=== PATIENT | male | born 1965 | race Caucasian/White ===

== ENCOUNTER 2019-09-04 14:10 | Observation (INO) ==
--- NOTE | 2019-09-04 15:23 | DR.PROGNOT ---
Hospital Progress Notes - Progress Note for Day of: Progress Note Date: 09/04/19 - Chief Complaint Chief Complaint: having watery bloody bowel movements. upper abdominal pain . anorexia and Wt loss . known gastro duodenal ulcers .s/p GI endoscopy . - Past Medical Family Social History Past Med/Fam/Surg Hx: No changes since H&P - Review Of Systems ROS: No change since H&P - Vital Signs Vital Signs: Blood Pressure 120/80 - Physical Exam Oriented: Normal Eyes: Other (pale conjunctiva.) Ear: Normal Nose: Normal Throat: Normal Respiratory: Normal Cardiovascular: Normal : Normal GI:Auscultation: Normal GI:Palpation: Normal GI: Tenderness: Diffuse (epigastric and Rt side tenderness . BS+) Skin: Normal Musculoskeletal: Normal Mood Description: Depressed - Assessment and Plan 1: rectal bleeding . abdominal pain with anorexia and Wt loss . gastro duedenal ulcers and gastritis . h/o Hepatitis B. cholelathiasis. on IV Protonix . Carafate PO , IVF and repeat CT and Lab work
--- NOTE | 2019-09-04 16:04 | DR.H&P ---
H&P History & Physical for Day of: H&P Date: 09/04/19 Chief Complaint Chief Complaint: Rectal bleeding Allergies Allergies Allergy/AdvReac Type Severity Reaction Status Date / Time No Known Drug Allergies Allergy Verified 09/04/19 16:16 History of Present Illness History of Present Illness: Pt is a 53 y/o m pmhx Cirrhosis, Chronic Hep B, PUD, HTN, Seizure d/o, Chronic cholecystitis, admitted from clinic after having episode of rectal bleeding and being acutely hypotensive with a BP 88/57, P 112, R18, pulseOx 99%. He reports associated sx of dizziness, fatigue, generalized weakness, chills, and abdominal pain. Initial labs:Hgb 6.7,Wbc 4, CEA pending, Cr 1.31, T bili 1.5, AST 178, ALT 124, ALP 132. Past Medical History Past Medical History: Cirrhosis, Hypertension, Kidney Stones, PUD and Seizures Past Surgical History Surgical History: Unknown Labs Result Diagrams: 09/05/19 05:28 09/05/19 05:28 Review of Systems Constitutional: Chills and Weakness; denies Fever Eyes: No Symptoms Reported ENT: No Symptoms Reported Respiratory: No Symptoms Reported Cardiovascular: No Symptoms Reported Physical Exam Vital Signs: Blood Pressure 120/80 Oriented: Normal Eyes: Normal Ear: Normal Nose: Normal Throat: Normal Respiratory: Clear Throughout Cardiovascular: Tachycardia : Normal Auscultation: Bowel Sounds: Normal Palpation: Normal Tenderness: Diffuse Skin: Decreased [place] Musculoskeletal: Normal Psychiatric: Normal Mood Description: Calm Speech Pattern: Clear Assessment/Plan (1) Rectal bleeding: Status: Acute Plan: Surgery-consulted for evaluation. Will get CT abdomen, Continue to monitor (2) Acute hypotension: Status: Acute Plan: IVF (3) PUD (peptic ulcer disease): Status: Acute Plan: IV protonix, Carafate, Continue to monitor. Review H&P Reviewed: Yes Patient was examined?: Yes
[2019-09-04 16:39] VITALS: BMI 32.6
[2019-09-04] MEDS ORDERED: VSL#3 PO ONE (16:42)
[2019-09-04] MEDS: CARAFATE PO SCH ×2 (16:44→21:17)
[2019-09-04 16:45] LABS: ALANINE AMINOTRANSFERASE 124 Units/L (12-78); ALBUMIN 2.1 g/dL (3.4-5.0); ALKALINE PHOSPHATASE 132 Units/L (46-116); ASPARTATE AMINO TRANSFERASE 178 Units/L (15-37); BLOOD UREA NITROGEN 21 mg/dL (7-18); CALCIUM 8.2 mg/dL (8.5-10.1); CARBON DIOXIDE 26.7 mmol/L (21-32); CHLORIDE 106 mmol/L (98-107); COR CA(FOR HYPOALB) 9.7 mg/dL (8.5-10.1); COR NA(FOR HYPERGLY) 138 mmol/L (136-145); CREATININE 1.31 mg/dL (0.70-1.30); SODIUM 137 mmol/L (136-145); TOTAL PROTEIN 5.9 g/dL (6.4-8.2); eGFR NON BLACK RACES > 60 (>60)
[2019-09-04] MEDS: D5 1/2 NS 1000 ML 1,000 ML IV SCH (16:45)
[2019-09-04] MEDS: PROTONIX INJ 40 MG VIAL IVP SCH ×2 (16:45→20:28)
[2019-09-04 16:47] LABS: BASOPHILS % (AUTO) 1.2 % (0.2-1.0); EOSINOPHILS # (AUTO) 0.2 x10^3/uL (0.0-0.2); EOSINOPHILS % (AUTO) 6.1 % (0.9-2.9); LYMPHOCYTES % (AUTO) 24.3 % (21.0-51.0); MEAN CORPUSCULAR HEMOGLOBIN 32.8 pg (27.0-34.0); MEAN CORPUSCULAR HGB CONC 34.3 g/dL (33.0-35.0); MEAN CORPUSCULAR VOLUME 95.6 fL (80.0-100.0); MEAN PLATELET VOLUME 8.6 fL (7.4-11.0); MONOCYTES # (AUTO) 0.4 x10^3/uL (0.3-0.8); MONOCYTES % (AUTO) 9.8 % (0.0-13.0); NEUTROPHILS # (AUTO) 2.4 x10^3/uL (2.2-4.8); NEUTROPHILS % (AUTO) 58.6 % (42.0-75.0); PLATELET COUNT 102 X10^3/uL (150.0-450.0); RED BLOOD COUNT 2.05 X10^6/uL (4.7-6.0); RED CELL DISTRIBUTION WIDTH 15.8 % (11.6-16.5)
--- NOTE | 2019-09-04 16:50 | RAD ---
HISTORYSOBSTUDYCHEST, 1 VIEWCOMPARISONNoneFINDINGSThe heart is normal. The pulmonary vessels are normal. The lungs are mildly hyperinflated with mild linear densities scattered along the lung bases laterally. No consolidation or effusion is seen.IMPRESSIONMild discoid atelectasis or scarring scattered along both lung bases.Electronically signed by: THOMAS WYLIE (Sep 04, 2019 16:48:46)
[2019-09-04 16:53] LABS: HEMATOCRIT 19.6 % (42.0-54.0); HEMOGLOBIN 6.7 g/dL (13.5-18.0)
[2019-09-04] MEDS: KEPPRA TAB 500 MG PO SCH (20:28)
[2019-09-04] MEDS: PROVENTIL NEB TX 0.083% 2.5MG/ 3ML NEB SCH (20:50)
[2019-09-04] MEDS ORDERED: NS 250 ML IV 250 ML IV ONE (20:52)
[2019-09-05 00:58] LABS: BILIRUBIN,URINE NEGATIVE (NEGATIVE); BLOOD/HEMOGLOBIN,URINE NEGATIVE (NEGATIVE); GLUCOSE, URINE NEGATIVE (NEGATIVE); KETONES,URINE NEGATIVE (NEGATIVE); LEUKOCYTE ESTERASE ,URINE 2+ (NEGATIVE); NITRITES,URINE NEGATIVE (NEGATIVE); PROTEIN,URINE 2+ (NEGATIVE); UROBILINOGEN,URINE 1+ (NORMAL)
[2019-09-05 01:00] LABS: APPEARANCE,URINE CLEAR (CLEAR); COLOR,URINE YELLOW (YELLOW)
[2019-09-05 01:15] LABS: BACTERIA,URINE TRACE /HPF (NEGATIVE); MUCUS,URINE FEW /HPF (NEGATIVE); RBC,URINE NONE SEEN /HPF (0-3); SQUAMOUS EPITHELIAL CELL,UR FEW /HPF (NEGATIVE)
[2019-09-05] MEDS ORDERED: ULTRAM PO PRN (02:03)
[2019-09-05] MEDS ORDERED: ULTRAM ONE (02:12)
[2019-09-05] MEDS: D5 1/2 NS 1000 ML 1,000 ML IV SCH ×2 (05:19→08:31)
[2019-09-05] MEDS: CARAFATE PO SCH ×3 (05:45→21:46)
[2019-09-05 05:51] LABS: BASOPHILS # (AUTO) 0.1 X10^3/uL (0.0-0.1); BASOPHILS % (AUTO) 1.3 % (0.2-1.0); EOSINOPHILS # (AUTO) 0.4 x10^3/uL (0.0-0.2); EOSINOPHILS % (AUTO) 8.5 % (0.9-2.9); HEMATOCRIT 24.4 % (42.0-54.0); HEMOGLOBIN 8.3 g/dL (13.5-18.0); LYMPHOCYTES # (AUTO) 1.5 X10^3/uL (1.3-2.9); LYMPHOCYTES % (AUTO) 30.8 % (21.0-51.0); MEAN CORPUSCULAR HEMOGLOBIN 31.4 pg (27.0-34.0); MEAN CORPUSCULAR HGB CONC 33.9 g/dL (33.0-35.0); MEAN CORPUSCULAR VOLUME 92.5 fL (80.0-100.0); MEAN PLATELET VOLUME 8.8 fL (7.4-11.0); MONOCYTES # (AUTO) 0.5 x10^3/uL (0.3-0.8); MONOCYTES % (AUTO) 9.6 % (0.0-13.0); NEUTROPHILS # (AUTO) 2.3 x10^3/uL (2.2-4.8); NEUTROPHILS % (AUTO) 49.8 % (42.0-75.0); PLATELET COUNT 90 X10^3/uL (150.0-450.0); RED BLOOD COUNT 2.64 X10^6/uL (4.7-6.0); RED CELL DISTRIBUTION WIDTH 16.2 % (11.6-16.5); WHITE BLOOD COUNT 4.7 X10^3/uL (3.6-10.0)
[2019-09-05 06:04] LABS: ALANINE AMINOTRANSFERASE 112 Units/L (12-78); ALBUMIN 1.9 g/dL (3.4-5.0); ALKALINE PHOSPHATASE 119 Units/L (46-116); ASPARTATE AMINO TRANSFERASE 164 Units/L (15-37); BLOOD UREA NITROGEN 15 mg/dL (7-18); CALCIUM 7.5 mg/dL (8.5-10.1); CARBON DIOXIDE 25.4 mmol/L (21-32); CHLORIDE 107 mmol/L (98-107); COR CA(FOR HYPOALB) 9.2 mg/dL (8.5-10.1); COR NA(FOR HYPERGLY) 137 mmol/L (136-145); CREATININE 0.99 mg/dL (0.70-1.30); SODIUM 137 mmol/L (136-145); TOTAL PROTEIN 5.5 g/dL (6.4-8.2); eGFR NON BLACK RACES > 60 (>60)
[2019-09-05] MEDS ORDERED: NS 1000 ML 0 ML ONE (07:59)
[2019-09-05] MEDS: KEPPRA TAB 500 MG PO SCH ×2 (08:35→21:47)
[2019-09-05] MEDS: PROTONIX INJ 40 MG VIAL IVP SCH ×2 (08:35→21:46)
--- NOTE | 2019-09-05 09:29 | DR.PROGNOT ---
Hospital Progress Notes - Progress Note for Day of: Progress Note Date: 09/05/19 - Chief Complaint Chief Complaint: feeling better today with less SOB after transfution. Hgb is 8.3. liver enzymes are better today . temp 99.3 - Past Medical Family Social History Past Med/Fam/Surg Hx: No changes since H&P Allergies: Allergies No Known Drug Allergies Allergy (Verified 09/04/19 16:16) - Review Of Systems ROS: No change since H&P - Vital Signs Vital Signs: Temperature 99.3 F Pulse Rate 94 Respiratory Rate 19 Blood Pressure 111/76 O2 Sat by Pulse Oximetry 99 - Physical Exam Oriented: Normal Eyes: Normal Ear: Normal Nose: Normal Throat: Normal Respiratory: Normal Cardiovascular: Tachycardia : Normal GI:Auscultation: Normal GI:Palpation: Normal GI: Tenderness: Diffuse (soft, full abdomen woth diffuse tenderness . BS+) Skin: Decreased [place] Musculoskeletal: Normal Psychiatric: Normal Mood Description: Calm Speech Pattern: Clear, Appropriate - Laboratory and Diagnostics Result Diagrams: 09/05/19 05:28 09/05/19 05:28 Labs: Laboratory WBC 4.7 X10^3/uL (3.6-10.0) 09/05/19 05:28 RBC 2.64 X10^6/uL (4.7-6.0) L 09/05/19 05:28 Hgb 8.3 g/dL (13.5-18.0) L 09/05/19 05:28 Hct 24.4 % (42.0-54.0) L 09/05/19 05:28 MCV 92.5 fL (80.0-100.0) 09/05/19 05:28 MCH 31.4 pg (27.0-34.0) 09/05/19 05:28 MCHC 33.9 g/dL (33.0-35.0) 09/05/19 05:28 RDW 16.2 % (11.6-16.5) 09/05/19 05:28 Plt Count 90 X10^3/uL (150.0-450.0) L 09/05/19 05:28 MPV 8.8 fL (7.4-11.0) 09/05/19 05:28 Neut % (Auto) 49.8 % (42.0-75.0) 09/05/19 05:28 Lymph % (Auto) 30.8 % (21.0-51.0) 09/05/19 05:28 [place] % (Auto) 9.6 % (0.0-13.0) 09/05/19 05:28 Eos % (Auto) 8.5 % (0.9-2.9) H 09/05/19 05:28 Baso % (Auto) 1.3 % (0.2-1.0) H 09/05/19 05:28 Neut # (Auto) 2.3 x10^3/uL (2.2-4.8) 09/05/19 05:28 Lymph # (Auto) 1.5 X10^3/uL (1.3-2.9) 09/05/19 05:28 [place] # (Auto) 0.5 x10^3/uL (0.3-0.8) 09/05/19 05:28 Eos # (Auto) 0.4 x10^3/uL (0.0-0.2) H 09/05/19 05:28 Baso # (Auto) 0.1 X10^3/uL (0.0-0.1) 09/05/19 05:28 Absolute Nucleated RBC 0.1 /100WBC 09/05/19 05:28 Sodium 137 mmol/L (136-145) 09/05/19 05:28 Corrected Sodium 137 mmol/L (136-145) 09/05/19 05:28 Potassium 3.7 mmol/L (3.5-5.1) 09/05/19 05:28 Chloride 107 mmol/L (98-107) 09/05/19 05:28 Carbon Dioxide 25.4 mmol/L (21-32) 09/05/19 05:28 BUN 15 mg/dL (7-18) 09/05/19 05:28 Creatinine 0.99 mg/dL (0.70-1.30) 09/05/19 05:28 Est GFR (MDRD) Af Amer > 60 (>60) 09/05/19 05:28 Est GFR (MDRD) Non-Af > 60 (>60) 09/05/19 05:28 Glucose 116 mg/dL (65-99) H 09/05/19 05:28 Calcium 7.5 mg/dL (8.5-10.1) L 09/05/19 05:28 Corrected Calcium 9.2 mg/dL (8.5-10.1) 09/05/19 05:28 Total Bilirubin 2.30 mg/dL (0.2-1.0) H 09/05/19 05:28 AST 164 Units/L (15-37) H 09/05/19 05:28 ALT 112 Units/L (12-78) H 09/05/19 05:28 Alkaline Phosphatase 119 Units/L (46-116) H 09/05/19 05:28 Total Protein 5.5 g/dL (6.4-8.2) L 09/05/19 05: Albumin 1.9 g/dL (3.4-5.0) L 09/05/19 05: Globulin 3.6 g/dL (2.5-4.5) 09/05/19 05: Albumin/Globulin Ratio 0.5 Ratio (1.1-2.1) L 09/05/19 05:28 Specimen Type Clean catch urine 09/05/19 00:40 Urine Color Yellow (YELLOW) 09/05/19 00:40 Urine Appearance Clear (CLEAR) 09/05/19 00:40 Urine pH 5.0 (5.0 - 8.0) 09/05/19 00:40 Ur Specific [place] 1.020 (1.000-1.030) 09/05/19 00:40 Urine Protein 2+ (NEGATIVE) 09/05/19 00:40 Urine Glucose (UA) Negative (NEGATIVE) 09/05/19 00:40 Urine Ketones Negative (NEGATIVE) 09/05/19 00:40 Urine Occult Blood Negative (NEGATIVE) 09/05/19 00:40 Urine Nitrite Negative (NEGATIVE) 09/05/19 00:40 Urine Bilirubin Negative (NEGATIVE) 09/05/19 00:40 Urine Urobilinogen 1+ (NORMAL) 09/05/19 00:40 Ur Leukocyte Esterase 2+ (NEGATIVE) 09/05/19 00:40 Urine RBC None seen /HPF (0-3) 09/05/19 00:40 Urine WBC 3-5 /HPF (0-5) 09/05/19 00:40 Ur Squamous Epith Cells Few /HPF (NEGATIVE) 09/05/19 00:40 Urine Bacteria Trace /HPF (NEGATIVE) 09/05/19 00:40 Urine Mucus Few /HPF (NEGATIVE) 09/05/19 00:40 Ur Culture Indicated? No/not indicated 09/05/19 00:40 Blood Type A POSITIVE 09/04/19 17:38 Antibody Screen Negative 09/04/19 17:38 Crossmatch See Detail 09/04/19 17:38 - Assessment and Plan 1: bleedind duedenal ulcer. abdominal pain with anorexia and Wt loss . h/o He patitis B. cholelathiasis. on IV Protonix . Carafate PO , IVF and repeat CT and Lab work . on bland diet . - Problem Patient Problems: Patient Problems PUD (peptic ulcer disease) (Acute) K27.9 Acute hypotension (Acute) I95.9 Rectal bleeding (Acute) K62.5
[2019-09-05] MEDS: PROVENTIL NEB TX 0.083% 2.5MG/ 3ML NEB SCH ×2 (09:40→20:30)
--- NOTE | 2019-09-05 11:30 | PCM.PROG ---
Progress Note Progress Note for Day of Date of Exam: 09/05/19 Subjective Subjective: Pt is a 53 y/o m pmhx Cirrhosis, Chronic Hep B, PUD, HTN, Seizure d/o, Chronic cholecystitis, admitted for rectal bleeding, acute hypotension. His Hgb 6.7>received 2 units prbc, today is 8.3. Pt reports improvement in symptoms. CEA pending, Cr 1.31>0.99, T bili 1.5>2.3, AST 178>164, ALT 124>112, ALP 132>119. He will have repeat CT abd/pelv today. F/u results and surgery recs. Continue to monitor, follow up labs in morning. Past Medical Family Social History Past Med/Fam/Surg Hx: No changes since H&P Allergies: Allergies No Known Drug Allergies Allergy (Verified 09/04/19 16:16) Review of Systems ROS: No change since H&P Vital Signs and I&O's Vital Signs: Temperature 99.3 F Pulse Rate 108 Respiratory Rate 18 Blood Pressure 110/71 O2 Sat by Pulse Oximetry 97 Intake and Output: Intake & Output 09/02/19 09/03/19 09/04/19 09/05/19 23:59 23:59 23:59 23:59 Intake Total 1231 / 1231 940 / 940 Output Total 300 / 300 Balance 1231 / 1231 640 / 640 Physical Exam Oriented: Normal Eyes: Normal Ear: Normal Nose: Normal Throat: Normal Respiratory: Normal Cardiovascular: Tachycardia : Normal Auscultation: Bowel Sounds: Normal Tenderness: Normal Skin: Normal Musculoskeletal: Normal Psychiatric: Normal Mood Description: Calm Speech Pattern: Clear and Appropriate Laboratory and Diagnostics Result Diagrams: 09/05/19 05:28 09/05/19 05:28 Labs: Laboratory WBC 4.7 X10^3/uL (3.6-10.0) 09/05/19 05:28 RBC 2.64 X10^6/uL (4.7-6.0) L 09/05/19 05:28 Hgb 8.3 g/dL (13.5-18.0) L 09/05/19 05:28 Hct 24.4 % (42.0-54.0) L 09/05/19 05:28 MCV 92.5 fL (80.0-100.0) 09/05/19 05:28 MCH 31.4 pg (27.0-34.0) 09/05/19 05:28 MCHC 33.9 g/dL (33.0-35.0) 09/05/19 05:28 RDW 16.2 % (11.6-16.5) 09/05/19 05:28 Plt Count 90 X10^3/uL (150.0-450.0) L 09/05/19 05:28 MPV 8.8 fL (7.4-11.0) 09/05/19 05:28 Neut % (Auto) 49.8 % (42.0-75.0) 09/05/19 05:28 Lymph % (Auto) 30.8 % (21.0-51.0) 09/05/19 05:28 [place] % (Auto) 9.6 % (0.0-13.0) 09/05/19 05:28 Eos % (Auto) 8.5 % (0.9-2.9) H 09/05/19 05:28 Baso % (Auto) 1.3 % (0.2-1.0) H 09/05/19 05:28 Neut # (Auto) 2.3 x10^3/uL (2.2-4.8) 09/05/19 05:28 Lymph # (Auto) 1.5 X10^3/uL (1.3-2.9) 09/05/19 05:28 [place] # (Auto) 0.5 x10^3/uL (0.3-0.8) 09/05/19 05:28 Eos # (Auto) 0.4 x10^3/uL (0.0-0.2) H 09/05/19 05:28 Baso # (Auto) 0.1 X10^3/uL (0.0-0.1) 09/05/19 05:28 Absolute Nucleated RBC 0.1 /100WBC 09/05/19 05:28 Sodium 137 mmol/L (136-145) 09/05/19 05:28 Corrected Sodium 137 mmol/L (136-145) 09/05/19 05:28 Potassium 3.7 mmol/L (3.5-5.1) 09/05/19 05:28 Chloride 107 mmol/L (98-107) 09/05/19 05:28 Carbon Dioxide 25.4 mmol/L (21-32) 09/05/19 05:28 BUN 15 mg/dL (7-18) 09/05/19 05:28 Creatinine 0.99 mg/dL (0.70-1.30) 09/05/19 05:28 Est GFR (MDRD) Af Amer > 60 (>60) 09/05/19 05:28 Est GFR (MDRD) Non-Af > 60 (>60) 09/05/19 05:28 Glucose 116 mg/dL (65-99) H 09/05/19 05:28 Calcium 7.5 mg/dL (8.5-10.1) L 09/05/19 05:28 Corrected Calcium 9.2 mg/dL (8.5-10.1) 09/05/19 05:28 Total Bilirubin 2.30 mg/dL (0.2-1.0) H 09/05/19 05:28 AST 164 Units/L (15-37) H 09/05/19 05:28 ALT 112 Units/L (12-78) H 09/05/19 05:28 Alkaline Phosphatase 119 Units/L (46-116) H 09/05/19 05:28 Total Protein 5.5 g/dL (6.4-8.2) L 09/05/19 05:28 Albumin 1.9 g/dL (3.4-5.0) L 09/05/19 05:28 Globulin 3.6 g/dL (2.5-4.5) 09/05/19 05:28 Albumin/Globulin Ratio 0.5 Ratio (1.1-2.1) L 09/05/19 05:28 Specimen Type Clean catch urine 09/05/19 00:40 Urine Color Yellow (YELLOW) 09/05/19 00:40 Urine Appearance Clear (CLEAR) 09/05/19 00:40 Urine pH 5.0 (5.0 - 8.0) 09/05/19 00:40 Ur Specific [place] 1.020 (1.000-1.030) 09/05/19 00:40 Urine Protein 2+ (NEGATIVE) 09/05/19 00:40 Urine Glucose (UA) Negative (NEGATIVE) 09/05/19 00:40 Urine Ketones Negative (NEGATIVE) 09/05/19 00:40 Urine Occult Blood Negative (NEGATIVE) 09/05/19 00:40 Urine Nitrite Negative (NEGATIVE) 09/05/19 00:40 Urine Bilirubin Negative (NEGATIVE) 09/05/19 00:40 Urine Urobilinogen 1+ (NORMAL) 09/05/19 00:40 Ur Leukocyte Esterase 2+ (NEGATIVE) 09/05/19 00:40 Urine RBC None seen /HPF (0-3) 09/05/19 00:40 Urine WBC 3-5 /HPF (0-5) 09/05/19 00:40 Ur Squamous Epith Cells Few /HPF (NEGATIVE) 09/05/19 00:40 Urine Bacteria Trace /HPF (NEGATIVE) 09/05/19 00:40 Urine Mucus Few /HPF (NEGATIVE) 09/05/19 00:40 Ur Culture Indicated? No/not indicated 09/05/19 00:40 Blood Type A POSITIVE 09/04/19 17:38 Antibody Screen Negative 09/04/19 17:38 Crossmatch See Detail 09/04/19 17:38 Plan (1) Rectal bleeding: Status: Acute Plan: Surgery-consulted for evaluation. CT abd/pelv pending Continue to monitor (2) Acute hypotension: Status: Acute Plan: IVF BP improved (3) PUD (peptic ulcer disease): Status: Acute Plan: IV protonix, Carafate, Continue to monitor. (4) Acute kidney injury: Status: Acute Plan: Resolved Cr:1.31>0.99
[2019-09-05] MEDS ORDERED: INFANT GAS RELIEF DROPS (MYLICON) PO PRN (13:38)
[2019-09-05] MEDS ORDERED: TENORMIN ONE (13:42)
[2019-09-05] MEDS ORDERED: FLOMAX ONE (13:43)
[2019-09-05] MEDS ORDERED: CELEXA ONE (13:43)
[2019-09-05] MEDS ORDERED: MYLICON TAB 80 MG CHEW PO ONE (13:47)
[2019-09-05] MEDS ORDERED: MYLICON TAB 80 MG CHEW PO PRN (13:49)
[2019-09-05] MEDS: FLOMAX PO SCH (13:59)
[2019-09-05] MEDS: DULCOLAX TAB EC 5 MG PO SCH ×2 (13:59→21:46)
[2019-09-05] MEDS: TENORMIN PO SCH (13:59)
[2019-09-05] MEDS: CELEXA PO SCH (14:00)
[2019-09-05] MEDS: MICRO K EXTEN CAP 10 MEQ PO SCH (21:47)
[2019-09-05] MEDS ORDERED: RESTORIL CAP 15 MG PO PRN (21:58)
[2019-09-06] MEDS: D5 1/2 NS 1000 ML 1,000 ML IV SCH (02:25)
[2019-09-06] MEDS: CARAFATE PO SCH (05:48)
[2019-09-06 06:20] LABS: BASOPHILS # (AUTO) 0.1 X10^3/uL (0.0-0.1); BASOPHILS % (AUTO) 1.2 % (0.2-1.0); EOSINOPHILS # (AUTO) 0.5 x10^3/uL (0.0-0.2); EOSINOPHILS % (AUTO) 10.3 % (0.9-2.9); HEMATOCRIT 25.1 % (42.0-54.0); HEMOGLOBIN 8.6 g/dL (13.5-18.0); LYMPHOCYTES # (AUTO) 1.4 X10^3/uL (1.3-2.9); MEAN CORPUSCULAR HEMOGLOBIN 31.2 pg (27.0-34.0); MEAN CORPUSCULAR HGB CONC 34.3 g/dL (33.0-35.0); MEAN CORPUSCULAR VOLUME 90.9 fL (80.0-100.0); MEAN PLATELET VOLUME 8.2 fL (7.4-11.0); MONOCYTES # (AUTO) 0.6 x10^3/uL (0.3-0.8); MONOCYTES % (AUTO) 12.5 % (0.0-13.0); NEUTROPHILS # (AUTO) 2.2 x10^3/uL (2.2-4.8); PLATELET COUNT 106 X10^3/uL (150.0-450.0); RED BLOOD COUNT 2.76 X10^6/uL (4.7-6.0); RED CELL DISTRIBUTION WIDTH 16.3 % (11.6-16.5); WHITE BLOOD COUNT 4.7 X10^3/uL (3.6-10.0)
[2019-09-06] MEDS ORDERED: ZOFRAN INJ 4 MG VIAL IVP PRN (06:33)
[2019-09-06 06:34] LABS: ALANINE AMINOTRANSFERASE 110 Units/L (12-78); ALBUMIN 1.9 g/dL (3.4-5.0); ALKALINE PHOSPHATASE 131 Units/L (46-116); ASPARTATE AMINO TRANSFERASE 154 Units/L (15-37); BLOOD UREA NITROGEN 10 mg/dL (7-18); CALCIUM 7.6 mg/dL (8.5-10.1); CARBON DIOXIDE 25.4 mmol/L (21-32); CHLORIDE 108 mmol/L (98-107); COR CA(FOR HYPOALB) 9.3 mg/dL (8.5-10.1); COR NA(FOR HYPERGLY) 139 mmol/L (136-145); CREATININE 1.04 mg/dL (0.70-1.30); SODIUM 138 mmol/L (136-145); TOTAL PROTEIN 5.6 g/dL (6.4-8.2); eGFR NON BLACK RACES > 60 (>60)
--- NOTE | 2019-09-06 08:31 | W.DIS.FURT ---
Summary of Discharge Discharge Summary of Date Date of Exam: 09/06/19 Admission Date Date of Admission: 09/04/19 Admission Diagnosis Hospital Course: Pt is a 53 y/o m pmhx Cirrhosis, Chronic Hep B, PUD, HTN, Seizure d/o, Chronic cholecystitis, admitted for bleeding duodenal ulcer, acute hypotension. Initial Hgb 6.7>received 2 units prbc, Hgb trending up 8.3>8.6 on discharge. CEA negative, Cr 1.31>0.99, improvement in T bili and liver enzymes. Pt did have recent CT A/P, repeat not indicated. Surgery consulted, no bleeding episodes since admission, rec outpatient follow up with continuation of PPI and Carafate. Rx medications to pharmacy. Discussed w/ pt to take medications as prescribed and to follow up with surgery and pcp in 1 week. Pt has hx of chronic hepatitis B and is not followed by GI, referral placed to Dr Mitchell outpatient for monitoring. Vital Signs: Vital Signs (72 hours) 09/04/19 16:04 09/04/19 16:15 09/04/19 16:30 Temperature 97.7 F Pulse Rate 100 H 100 H 98 H Respiratory Rate Blood Pressure O2 Sat by Pulse Oximetry 99 100 100 09/04/19 16:45 09/04/19 16:56 09/04/19 17:00 Temperature Pulse Rate 100 H 100 H 100 H Respiratory Rate Blood Pressure 120/71 120/72 O2 Sat by Pulse Oximetry 100 100 100 09/04/19 17:17 09/04/19 17:30 09/04/19 17:45 Temperature Pulse Rate 99 H 97 H 104 H Respiratory Rate Blood Pressure O2 Sat by Pulse Oximetry 100 100 100 09/04/19 18:00 09/04/19 19:00 09/04/19 20:00 Temperature 98.4 F Pulse Rate 104 H 96 H 98 H Respiratory Rate 20 18 Blood Pressure 122/77 120/77 121/74 O2 Sat by Pulse Oximetry 100 100 100 09/04/19 20:50 09/04/19 21:00 09/04/19 22:00 Temperature Pulse Rate 107 H 108 H 110 H Respiratory Rate 20 20 Blood Pressure 125/61 128/69 O2 Sat by Pulse Oximetry 100 98 98 09/04/19 23:00 09/05/19 00:00 09/05/19 01:00 Temperature 98.9 F Pulse Rate 104 H 106 H 96 H Respiratory Rate 20 20 18 Blood Pressure 120/70 117/69 108/67 O2 Sat by Pulse Oximetry 98 98 98 09/05/19 02:00 09/05/19 02:15 09/05/19 03:00 Temperature 98.2 F Pulse Rate 99 H 102 H Respiratory Rate 20 20 20 Blood Pressure 123/70 121/73 O2 Sat by Pulse Oximetry 09/05/19 03:15 09/05/19 04:00 09/05/19 05:00 Temperature 98.6 F Pulse Rate 100 H 97 H Respiratory Rate 20 17 20 Blood Pressure 120/58 111/66 O2 Sat by Pulse Oximetry 09/05/19 06:00 09/05/19 07:00 09/05/19 08:00 Temperature 99.3 F Pulse Rate 97 H 92 H 94 H Respiratory Rate 20 15 19 Blood Pressure 110/73 107/69 111/76 O2 Sat by Pulse Oximetry 100 99 09/05/19 09:00 09/05/19 09:40 09/05/19 10:00 Temperature Pulse Rate 96 H 97 H 110 H Respiratory Rate 22 19 Blood Pressure 119/73 109/66 O2 Sat by Pulse Oximetry 98 100 98 09/05/19 11:00 09/05/19 12:00 09/05/19 13:00 Temperature 99 F Pulse Rate 108 H 111 H 117 H Respiratory Rate 18 22 22 Blood Pressure 110/71 105/70 117/78 O2 Sat by Pulse Oximetry 97 97 97 09/05/19 14:00 09/05/19 15:00 09/05/19 16:00 Temperature 99.1 F Pulse Rate 102 H 83 83 Respiratory Rate 16 21 22 Blood Pressure 116/74 100/70 100/63 O2 Sat by Pulse Oximetry 98 96 96 09/05/19 17:00 09/05/19 18:00 09/05/19 19:00 Temperature Pulse Rate 81 90 85 Respiratory Rate 20 22 19 Blood Pressure 95/64 91/61 99/68 O2 Sat by Pulse Oximetry 96 99 96 09/05/19 20:00 09/05/19 20:30 09/05/19 21:00 Temperature 98.7 F Pulse Rate 82 95 H 96 H Respiratory Rate 20 18 Blood Pressure 99/62 98/64 O2 Sat by Pulse Oximetry 97 97 98 09/05/19 22:00 09/05/19 23:00 09/06/19 00:00 Temperature 98.7 F Pulse Rate 93 H 94 H 88 Respiratory Rate 20 20 16 Blood Pressure 106/68 99/67 95/63 O2 Sat by Pulse Oximetry 98 96 97 09/06/19 01:00 09/06/19 02:00 09/06/19 03:00 Temperature Pulse Rate 91 H 91 H 94 H Respiratory Rate 18 18 18 Blood Pressure 96/67 102/67 107/64 O2 Sat by Pulse Oximetry 97 98 97 09/06/19 04:00 09/06/19 05:00 09/06/19 06:00 Temperature 98.9 F Pulse Rate 90 97 H 87 Respiratory Rate 20 16 20 Blood Pressure 92/64 94/66 107/64 O2 Sat by Pulse Oximetry 96 96 99 09/06/19 07:00 Temperature Pulse Rate 87 Respiratory Rate 18 Blood Pressure 107/68 O2 Sat by Pulse Oximetry 96 Labs: Laboratory Last Values WBC 4.7 X10^3/uL (3.6-10.0) 09/06/19 04:18 RBC 2.76 X10^6/uL (4.7-6.0) L 09/06/19 04:18 Hgb 8.6 g/dL (13.5-18.0) L 09/06/19 04:18 Hct 25.1 % (42.0-54.0) L 09/06/19 04:18 MCV 90.9 fL (80.0-100.0) 09/06/19 04:18 MCH 31.2 pg (27.0-34.0) 09/06/19 04:18 MCHC 34.3 g/dL (33.0-35.0) 09/06/19 04:18 RDW 16.3 % (11.6-16.5) 09/06/19 04:18 Plt Count 106 X10^3/uL (150.0-450.0) L 09/06/19 04:18 MPV 8.2 fL (7.4-11.0) 09/06/19 04:18 Neut % (Auto) 47.0 % (42.0-75.0) 09/06/19 04:18 Lymph % (Auto) 29.0 % (21.0-51.0) 09/06/19 04:18 [place] % (Auto) 12.5 % (0.0-13.0) 09/06/19 04:18 Eos % (Auto) 10.3 % (0.9-2.9) H 09/06/19 04:18 Baso % (Auto) 1.2 % (0.2-1.0) H 09/06/19 04:18 Neut # (Auto) 2.2 x10^3/uL (2.2-4.8) 09/06/19 04:18 Lymph # (Auto) 1.4 X10^3/uL (1.3-2.9) 09/06/19 04:18 [place] # (Auto) 0.6 x10^3/uL (0.3-0.8) 09/06/19 04:18 Eos # (Auto) 0.5 x10^3/uL (0.0-0.2) H 09/06/19 04:18 Baso # (Auto) 0.1 X10^3/uL (0.0-0.1) 09/06/19 04:18 Absolute Nucleated RBC 0.2 /100WBC 09/06/19 04:18 Sodium 138 mmol/L (136-145) 09/06/19 04:18 Corrected Sodium 139 mmol/L (136-145) 09/06/19 04:18 Potassium 3.5 mmol/L (3.5-5.1) 09/06/19 04:18 Chloride 108 mmol/L (98-107) H 09/06/19 04:18 Carbon Dioxide 25.4 mmol/L (21-32) 09/06/19 04:18 BUN 10 mg/dL (7-18) 09/06/19 04:18 Creatinine 1.04 mg/dL (0.70-1.30) 09/06/19 04:18 Est GFR (MDRD) Af Amer > 60 (>60) 09/06/19 04:18 Est GFR (MDRD) Non-Af > 60 (>60) 09/06/19 04:18 Glucose 124 mg/dL (65-99) H 09/06/19 04:18 Calcium 7.6 mg/dL (8.5-10.1) L 09/06/19 04:18 Corrected Calcium 9.3 mg/dL (8.5-10.1) 09/06/19 04:18 Total Bilirubin 1.20 mg/dL (0.2-1.0) H 09/06/19 04:18 AST 154 Units/L (15-37) H 09/06/19 04:18 ALT 110 Units/L (12-78) H 09/06/19 04:18 Alkaline Phosphatase 131 Units/L (46-116) H 09/06/19 04:18 Total Protein 5.6 g/dL (6.4-8.2) L 09/06/19 04:18 Albumin 1.9 g/dL (3.4-5.0) L 09/06/19 04:18 Globulin 3.7 g/dL (2.5-4.5) 09/06/19 04:18 Albumin/Globulin Ratio 0.5 Ratio (1.1-2.1) L 09/06/19 04:18 Specimen Type Clean catch urine 09/05/19 00:40 Urine Color Yellow (YELLOW) 09/05/19 00:40 Urine Appearance Clear (CLEAR) 09/05/19 00:40 Urine pH 5.0 (5.0 - 8.0) 09/05/19 00:40 Ur Specific [place] 1.020 (1.000-1.030) 09/05/19 00:40 Urine Protein 2+ (NEGATIVE) 09/05/19 00:40 Urine Glucose (UA) Negative (NEGATIVE) 09/05/19 00:40 Urine Ketones Negative (NEGATIVE) 09/05/19 00:40 Urine Occult Blood Negative (NEGATIVE) 09/05/19 00:40 Urine Nitrite Negative (NEGATIVE) 09/05/19 00:40 Urine Bilirubin Negative (NEGATIVE) 09/05/19 00:40 Urine Urobilinogen 1+ (NORMAL) 09/05/19 00:40 Ur Leukocyte Esterase 2+ (NEGATIVE) 09/05/19 00:40 Urine RBC None seen /HPF (0-3) 09/05/19 00:40 Urine WBC 3-5 /HPF (0-5) 09/05/19 00:40 Ur Squamous Epith Cells Few /HPF (NEGATIVE) 09/05/19 00:40 Urine Bacteria Trace /HPF (NEGATIVE) 09/05/19 00:40 Urine Mucus Few /HPF (NEGATIVE) 09/05/19 00:40 Ur Culture Indicated? No/not indicated 09/05/19 00:40 Blood Type A POSITIVE 09/04/19 17:38 Antibody Screen Negative 09/04/19 17:38 Crossmatch See Detail 09/04/19 17:38 Reason For Visit: ABD PAIN,GI BLEED Discharge Date Discharge Date: 09/06/19 Discharge Diagnosis All Active Problems (Updated 09/05/19 @ 11:44 by Paco Barry) Acute kidney injury (Acute) PUD (peptic ulcer disease) (Acute) Acute hypotension (Acute) Rectal bleeding (Acute) Plan of Treatment: Continue with present treatment and follow up plan. Pt is to keep follow up appointment as instructed and take medications as ordered. Discharge Medications Discharge Medications: No Known Drug Allergies Allergy (Verified 09/04/19 16:16) CONTINUE taking the following medications atenolol 50 mg PO DAILY 09/04/19 [History] benazepril 5 mg PO DAILY 09/04/19 [History] citalopram 20 mg PO DAILY 09/04/19 [History] diclofenac sodium 75 mg PO BID 09/04/19 [History] levetiracetam 1,000 mg PO BID 09/04/19 [History] mupirocin 1 applic TOPICAL TID 09/04/19 [History] potassium chloride 10 meq PO BID 09/04/19 [History] tamsulosin 0.4 mg PO DAILY 09/04/19 [History] alprazolam [Xanax] 0.25 mg PO HS PRN 09/05/19 [History] New Prescriptions pantoprazole [Protonix] 40 mg PO BID 28 Days #60 tab 09/06/19 [Rx] simethicone [Mi-Acid Gas Relief(simethicon)] 160 mg PO TID PRN 10 Days #30 tab 09/06/19 [Rx] sucralfate 1 g PO TID 30 Days #90 tab 09/06/19 [Rx] Follow up and Referral Follow Up: 1 Week Discharge Disposition Assessment: Problem: Pain/Alteration in Comfort Goal: Improve/ Resolve Pain; Achieve Pain Tolerance Instructions: Take pain medications as prescribed. Contact your primary care provider if your pain is unrelieved or worsens. Follow up with primary care provider as directed. Discharge Disposition: Home Discharge Condition: Stable
[2019-09-06] MEDS: PROTONIX INJ 40 MG VIAL IVP SCH (08:47)
[2019-09-06] MEDS: KEPPRA TAB 500 MG PO SCH (08:49)
[2019-09-06] MEDS: CELEXA PO SCH (08:49)
[2019-09-06] MEDS: FLOMAX PO SCH (08:49)
[2019-09-06] MEDS: TENORMIN PO SCH (08:49)
[2019-09-06] MEDS: MICRO K EXTEN CAP 10 MEQ PO SCH (08:49)
[2019-09-06] MEDS: DULCOLAX TAB EC 5 MG PO SCH (08:50)
[2019-09-06 09:09] VITALS: BP 98/63
[2019-09-06] MEDS: PROVENTIL NEB TX 0.083% 2.5MG/ 3ML NEB SCH (09:16)
== END 2019-09-06 09:55 | disposition home or self-care (01) ==
LOC: ICU
PROVIDERS: ADMIT Family Medicine; ATTEND Family Medicine
DX: N18.9 Chronic kidney disease, unspecified; R10.10 Upper abdominal pain, unspecified; R06.02 Shortness of breath; I12.9 Hypertensive chronic kidney disease with stage 1 through stage 4 chronic kidney disease, or unspecified chronic kidney disease; K74.60 Unspecified cirrhosis of liver; R63.4 Abnormal weight loss; F41.9 Anxiety disorder, unspecified; K73.8 Other chronic hepatitis, not elsewhere classified; N17.9 Acute kidney failure, unspecified; I95.9 Hypotension, unspecified; R42 Dizziness and giddiness; K81.1 Chronic cholecystitis; K26.0 Acute duodenal ulcer with hemorrhage
CPT/HCPCS: 36415; 36430; 71010; 71045; 80053; 81001; 82378; 85025; 86850; 86900; 86901; 86922; 93005; 94640; 97161; A4222; C9113; G0378; J7613; P9016; S5010